=== PATIENT | female | born 1965 | race Caucasian/White ===

== ENCOUNTER 2018-05-02 20:07 | Emergency (ER) | payer OTHER ==
[2018-05-02 20:34] VITALS: BP 144/81
--- NOTE | 2018-05-02 20:59 | ED Physician Documentation ---
History of Present Illness - Stated complaint Stated Complaint: MHE - Chief complaint Chief Complaint: General - History obtained from History obtained from: Patient - History of Present Illness Timing: Other (several months (since September,)) - Additonal information Additional information: patient says she has been depressed since September, initially without provoking/ inciting incident, but substantially worse 12/01 when her mother . She is scheduled to fly to [facility] in 2 days but feels she is too upset and depressed to get on the plane. She is crying during HPI in discussing this with me. She denies SI, AH, VH. Review of Systems Psychiatric: reports: Depressed. denies: Suicidal, Hallucinations, Anxiety PD PAST MEDICAL HISTORY - Past Medical History Past Medical History: Yes Cardiovascular: Other Respiratory: None Neuro: None Endocrine/Autoimmune: None GI: None ASSISTANT OPERATIONS MANAGER: None : None HEENT: None Psych: Depression Musculoskeletal: None Derm: None Other Past Medical History: SLEEPING ISSUE... HEART PALPITATION... - Past Surgical History Past Surgical History: No - Allergies Allergies/Adverse Reactions: Allergies Allergy/AdvReac Type Severity Reaction Status Date / Time No Known Drug Allergies Allergy Verified 05/02/18 20:33 - Social History Does the pt smoke?: No Smoking Status: Never smoker Does the pt drink ETOH?: No Does the pt have substance abuse?: No - Immunizations Immunizations are current?: Yes - POLST Patient has POLST: No PD ED PE NORMAL - Vitals Vital signs reviewed: Yes - General General: Alert and oriented X 3, No acute distress, Well developed/nourished - Neuro Neuro: Alert and oriented X 3 PD ED PE EXPANDED - Psych Psych: Tearful Results - Vitals Vitals: Vital Signs - 24 hr 05/02/18 05/02/18 20:29 21:12 Temperature 36.8 C Heart Rate 83 Respiratory 22 17 Rate Blood Pressure 144/81 H O2 Saturation 99 Oxygen O2 Source Room air PD MEDICAL DECISION MAKING - ED course Complexity details: considered differential, d/w patient ED course: Patient declines SW/MHP evaluation, and is just here requesting note excusing her from her scheduled airplane flight in 2 days. I advised her to follow up with her primary care physician as soon as possible to discuss options for medications to help her with her depression. I feel she would be inappropriate to fly until she can be cleared by her primary care physician; it would be particularly challenging for her to fly to [facility] (where her mother ) without severe anxiety during the flight. Departure - Departure Disposition: 01 Home, Self Care Clinical Impression: Depression Qualifiers: Depression Type: unspecified Qualified Code(s): F32.9 - Major depressive disorder, single episode, unspecified Condition: Good Instructions: ED Depression Follow-Up: MARIO SUBRAMANIAN [Primary Care Provider] - (Call to arrange for next available appointment) Forms: Activity restrictions Discharge Date/Time: 05/02/18 21:13
== END 2018-05-02 21:13 | disposition home or self-care (01) ==
LOC: ED 20:07
DX: F32.9 Major depressive disorder, single episode, unspecified (principal)
CPT/HCPCS: 99282; 99283